=== PATIENT | female | born 1955 | race Caucasian/White ===

== ENCOUNTER 2016-11-12 06:40 | Day surgery (SDC) | payer MEDICARE ==
[~2016-11-12 06:40] MED LIST: NEO SYNEPHRINE ONE; ROBINUL ONE; XYLOCAINE MPF 2% ONE
[2016-11-12] MEDS ORDERED: DIPRIVAN 10 MG/ML IV ONE ×2 (07:32)
--- NOTE | 2016-11-12 07:55 | Anesthesia Consultation ---
Anesthesia Consult and Med Hx Date of service: 11/12/16 - Airway Anesthetic Teeth Evaluation: Dentures (upper) ROM Head & Neck: Adequate Mental/Hyoid Distance: Adequate Mallampati Class: Class II Intubation Access Assessment: Probably Good - Pulmonary Exam CTA: Yes - Cardiac Exam Cardiac Exam: RRR - Pre-Operative Health Status ASA Pre-Surgery Classification: ASA3 Proposed Anesthetic Plan: MAC - Cardiovascular System Hx Hypertension: Yes (high cholesterol ) Hx Cardia Arrhythmia: Yes (Afib s/p ablation ) - Endocrine Hx Liver Disease: No (fatty liver )
--- NOTE | 2016-11-12 07:57 | Anesthesia Day of Surgery ---
Anesthesia Day of Surgery - Day of Surgery Patient Examined: Yes Patient H&P Reviewed: Yes Patient is NPO: Yes
[2016-11-12] MEDS ORDERED: NACL 0.9% 1000 ML ONE (09:01)
[2016-11-12] MEDS ORDERED: WATER FOR IRRIG STERILE IR ONE (09:40)
--- NOTE | 2016-11-12 09:44 | Short Stay Summary ---
Short Stay Documentation - Allergies and Medications Current Medications: Allergies No Known Allergies Allergy (Unverified 11/12/16 06:40) - Brief post op/procedure progress note Date of procedure: 11/12/16 Pre-op diagnosis: 1. Colon cancer screening Post-op diagnosis: same (1. Colon cancer screening) Procedure: Colonoscopy Anesthesia: MAC Findings: As above Surgeon: JUAN CARLOS CAMPBELL Estimated blood loss: none Pathology: none Specimen disposition: to lab - Disposition Condition at discharge: Stable Disposition: DISCHARGED TO HOME OR SELFCARE Short Stay Discharge Plan Activity: no restrictions Weight Bearing Status: Full Weight Bearing Diet: regular Follow up with: BRODERICK ALEJANDRA MD [Primary Care Provider] - 7 Days
[2016-11-12 10:17] VITALS: BP 120/70
--- NOTE | 2016-11-12 13:46 | Post Anesthesia Evaluation ---
- Post Anesthesia Evaluation Patient Participated: Yes Airway Patent: Yes Stable Respiratory Function: Yes Nausea/Vomiting: No Temp > 96.8F: Yes Pain Manageable: Yes Adequeate Hydration: Yes Anesthesia Complications: No Block Receding Appropriately: Not Applicable Patient on Ventilator: No
== END 2016-11-12 06:41 | disposition home or self-care (01) ==
LOC: GIO 06:40
PROVIDERS: ATTEND Internal Medicine Gastroenterology
DX: Z12.11 Encounter for screening for malignant neoplasm of colon (principal); K63.89 Other specified diseases of intestine; K64.0 First degree hemorrhoids; I10 Essential (primary) hypertension; E78.00 Pure hypercholesterolemia, unspecified; I48.91 Unspecified atrial fibrillation; M19.90 Unspecified osteoarthritis, unspecified site; M81.0 Age-related osteoporosis without current pathological fracture; Z90.710 Acquired absence of both cervix and uterus
CPT/HCPCS: 45378; J2370; J2704; J7030